=== PATIENT | female | born 1990 | race Caucasian/White ===

== ENCOUNTER 2016-10-20 12:44 | Emergency (ER) | payer SELFPAY ==
[~2016-10-20] VITALS: Ht 177.8 cm; Wt 66.4 kg
[~2016-10-20 12:44] MED LIST: AMBIEN10 MG PO; BUPROPION XL150 MG PO; Motrin PO; NOR-Q-D0.35 MG PO; TYLENOL EXTRA500 MG PO; VITRON-C TABLE1 EACH PO
[2016-10-20] MEDS ORDERED: ERYTHROMYC1 APPLICAT LEFT EYE (14:50)
[2016-10-20] MEDS ORDERED: MOTRIN800 MG PO (14:51)
[2016-10-20] MEDS ORDERED: ULTRAM50 MG PO (14:51)
[2016-10-20 15:12] VITALS: BP 114/67
== END 2016-10-20 15:14 | disposition home or self-care (01) ==
LOC: EME 12:44
DX: S05.02XA Injury of conjunctiva and corneal abrasion without foreign body, left eye, initial encounter (principal); W01.190A Fall on same level from slipping, tripping and stumbling with subsequent striking against furniture, initial encounter; F17.200 Nicotine dependence, unspecified, uncomplicated
CPT/HCPCS: 99281; 99284

== ENCOUNTER 2016-12-05 13:34 | Emergency (ER) | payer SELFPAY ==
[~2016-12-05] VITALS: Ht 177.8 cm; Wt 67.0 kg
[~2016-12-05 13:34] MED LIST changes: +ERYTHROMYC1 APPLICAT LEFT EYE; +MOTRIN800 MG PO; +ULTRAM50 MG PO
[2016-12-05] MEDS ORDERED: RANITIDINE HCL150 MG PO (14:52)
[2016-12-05] MEDS ORDERED: MEDROL DOSEPAK4 MG PO (14:52)
[2016-12-05] MEDS ORDERED: ZYRTEC10 M3 PO (14:52)
[2016-12-05 15:05] VITALS: BP 113/67
== END 2016-12-05 15:06 | disposition home or self-care (01) ==
LOC: EME 13:34
DX: L50.9 Urticaria, unspecified (principal); L29.9 Pruritus, unspecified; Z88.0 Allergy status to penicillin; F17.200 Nicotine dependence, unspecified, uncomplicated
CPT/HCPCS: 99281; 99283

== ENCOUNTER 2017-08-29 10:28 | Emergency (ER) | payer SELFPAY ==
[~2017-08-29] VITALS: Ht 180.3 cm; Wt 62.1 kg
[~2017-08-29 10:28] MED LIST changes: +ATARAX,VISTARIL25 MG PO; +KENALOG,ARISTOC80 G1 TP; +MEDROL DOSEPAK4 MG PO; +PREDNISONE20 MG PO; +RANITIDINE HCL150 MG PO; +ZYRTEC10 M3 PO
[2017-08-29 11:20] LABS: APPEARANCE SL.HAZY ((CLEAR)); BILIRUBIN NEGATIVE; BLOOD MODERATE; COLOR YELLOW ((YELLOW)); GLUCOSE (STRIP) NEGATIVE; KETONES NEGATIVE; LEUKOCYTES LARGE; NITRITE NEGATIVE; PROTEIN (STRIP) 100; SPECIFIC GRAVITY 1.014 (1.000-1.030)
[2017-08-29 11:20] LABS: HEMOGLOBIN 14.2 G/DL (11.9-15.5); MCH 30.9 PG (29.0-34.0); MCHC 35.5 G/DL (30.0-36.0); PLATELET COUNT 269 K/uL (156-360); RBC DIS.WIDTH-CV 12.1 % (11.8-14.6); RBC DIS.WIDTH-SD 38.8 % (39-53); WHITE BLOOD COUNT 7.9 K/uL (4.1-10.2)
[2017-08-29 11:29] LABS: CHLORIDE 107 mEq/L (99-109)
[2017-08-29 11:30] LABS: POTASSIUM 4.1 mEq/L (3.7-5.4); SODIUM 141 mEq/L (136-147)
[2017-08-29 11:31] LABS: GLUCOSE 86 mg/dL (70-99)
[2017-08-29 11:35] LABS: CREATININE 0.7 mg/dL (0.6-1.3); GFR ESTIMATE (CALCULATED) > 59 mL/min/
[2017-08-29 11:36] LABS: UREA NITROGEN (BUN) 7 mg/dL (9-23)
[2017-08-29 12:00] LABS: BACTERIA RARE /HPF; EPITHELIAL CELLS RARE /HPF; MUCUS TRACE /LPF; RED BLOOD CELLS TNTC /HPF (0-5); UCUL ADDED? YES; WHITE BLOOD CELLS TNTC /HPF (0-5)
[2017-08-29] MEDS ORDERED: KEFLEX500 MG PO (13:43)
[2017-08-29 14:30] VITALS: BP 104/66
== END 2017-08-29 14:30 | disposition home or self-care (01) ==
LOC: EME 10:28
DX: N39.0 Urinary tract infection, site not specified (principal); F17.200 Nicotine dependence, unspecified, uncomplicated; Z88.0 Allergy status to penicillin
CPT/HCPCS: 80048; 81003; 85027; 87077; 87086; 99281; 99284; J0696